=== PATIENT | female | born 1985 | race Hispanic/Latino ===

== ENCOUNTER 2022-12-06 18:13 | Emergency (ER) | payer OTHER ==
[~2022-12-06] VITALS: Ht 167.6 cm; Wt 94.0 kg
[2022-12-06] VITALS (9 sets, daily range): BP systolic 108–137; BP diastolic 61–98
[~2022-12-06 18:13] MED LIST: ACETTAB3 OR; ALBUTEROL0.5 % INH; AMOXICILLIN500 MG OR; ANAPROX275 MG OR; BISMUTH262 MG PO; CIPRO500 MG OR; CONCEPT OB PO; FLAGYL500 MG OR; FLEXERIL PO; FLUZONE SPLT1 M1 IM; LORTAB5 OR; MACRODANTIN100 MG OR; METRONIDAZOL500 MG PO; MIRENA IU; NAPROSYN500 MG PO; OMEPRAZOLE20 M2 PO; ONDANSETRON ODT8 MG PO; PRENATA4 OR; PRENATABS OR; PRENATAL VITAMINS PO; PROTONIX40 M2 PO; TETRACYCLINE H500 MG PO; ULTRAM50 M1 PO; ZOFRAN ODT4 MG OR
[2022-12-06] MEDS ORDERED: FIORICET 50-3001 CAP PO (21:37)
[2022-12-06] MEDS ORDERED: REGLAN10 MG PO (21:37)
== END 2022-12-06 21:46 | disposition home or self-care (01) | DRG 103 ==
LOC: ED 18:13
DX: R51.9 Headache, unspecified (principal)